=== PATIENT | male | born 1980 | race Hispanic/Latino ===

== ENCOUNTER 2018-10-24 21:34 | Emergency (ER) | payer SELFPAY ==
[~2018-10-24] VITALS: Ht 172.7 cm; Wt 90.0 kg
[2018-10-24] MEDS ORDERED: AMOXICILLIN500 MG PO (22:15)
[2018-10-24] MEDS ORDERED: ULTRAM50 M1 PO (22:15)
[2018-10-24 22:20] VITALS: BP 112/75
== END 2018-10-24 22:20 | disposition home or self-care (01) | DRG 159 ==
LOC: ED 21:34
DX: K04.7 Periapical abscess without sinus (principal); F17.210 Nicotine dependence, cigarettes, uncomplicated